=== PATIENT | female | born 1975 | race Two or more races ===

== ENCOUNTER → 2025-05-16 | Outpatient (CLI) | payer OTHER, SELFPAY ==
--- NOTE | 2025-05-16 15:00 | XR_ITS ---
Examination: Breast ultrasound, unilateral, left complete Date and time of exam: May 16, 2025 1522 hours INDICATIONS: Outside mammogram April 02, 2025 10 mm focal asymmetry inferior left breast Technique: Real-time muller scale ultrasonographic imaging performed left breast including all 4 quadrants as well as nipple retroareolar and axillary region. Findings: 2:00 cyst 6 x 4 mm 3:00 cyst 6 x 4 mm Dilated retroareolar ducts. No solid nodules IMPRESSION: BI-RADS Category 2: Benign findings
--- NOTE | 2025-05-16 15:30 | XR_ITS ---
Examination: Diagnostic digital mammography, unilateral, left Computer aided detection 3-D breast Tomosynthesis, unilateral Date and time of exam: May 16, 2025 1539 hours INDICATIONS: Mammogram April 02, 2025 10 mm focal asymmetry inferior left breast Technique: Nonmagnified MLO, CC views of the left breast have been obtained, reconstructed from 3-D Tomosynthesis images. R2 computer aided detection program utilized for evaluation of suspicious masses and/or abnormal calcifications. 3-D Tomosynthesis images obtained. Findings: The breast is heterogeneously dense, which may obscure small masses No suspicious mass is depicted Impression: BI-RADS category 2: Benign findings Yearly follow-up mammography recommended
== END | disposition home or self-care (01) ==
LOC: CDIM 15:05
PROVIDERS: PCP Physician Assistant; Referring Provider Physician Assistant; Visit Provider Physician Assistant
DX: R92.332 Mammographic heterogeneous density, left breast (principal); N60.12 Diffuse cystic mastopathy of left breast; N64.89 Other specified disorders of breast
CPT/HCPCS: 76641; 77061; 77065; G0279